=== PATIENT | female | born 2000 | race American Indian/Alaskan Native ===

== ENCOUNTER 2023-09-05 07:09 | Day surgery (SDC) | payer BC, OTHER ==
[~2023-09-05 07:09] MED LIST: Midazolam 1 MG/ML 2 ML SDV ONE; fentaNYL 100 MCG/2 ML SDV ONE
[2023-09-05] MEDS ORDERED: Midazolam 1 MG/ML 2 ML SDV IV ONE (07:10)
[2023-09-05] MEDS ORDERED: fentaNYL 100 MCG/2 ML SDV IV ONE (07:10)
[2023-09-05] MEDS: Dextrose 5%-0.45% NaCl 1,000 ML IV SCH (07:36)
[2023-09-05] MEDS: fentaNYL 100 MCG/2 ML SDV IV ONE ×2 (07:51→07:52)
[2023-09-05] MEDS: Midazolam 1 MG/ML 2 ML SDV IV ONE ×2 (07:52→07:53)
== END 2023-09-05 09:35 | disposition home or self-care (01) ==
LOC: DL.ENDO 07:09
PROVIDERS: ATTEND Internal Medicine Gastroenterology
DX: K29.50 Unspecified chronic gastritis without bleeding (principal); K31.819 Angiodysplasia of stomach and duodenum without bleeding; K31.A15 Gastric intestinal metaplasia without dysplasia, involving multiple sites; K59.00 Constipation, unspecified; D72.820 Lymphocytosis (symptomatic)
CPT/HCPCS: 43239; 81025; 87077; J2250; J3010; J7799

== ENCOUNTER 2023-09-12 07:38 | Day surgery (SDC) | payer BC, OTHER ==
[2023-09-12] MEDS ORDERED: fentaNYL 100 MCG/2 ML SDV IV ONE (07:39)
[2023-09-12] MEDS ORDERED: Midazolam 1 MG/ML 2 ML SDV IV ONE (07:39)
[2023-09-12] MEDS: Dextrose 5%-0.45% NaCl 1,000 ML IV SCH (07:59)
[2023-09-12] MEDS ORDERED: Midazolam 1 MG/ML 2 ML SDV ONE (08:06)
[2023-09-12] MEDS ORDERED: fentaNYL 100 MCG/2 ML SDV ONE (08:07)
[2023-09-12] MEDS: fentaNYL 100 MCG/2 ML SDV IV ONE ×5 (08:09→08:19)
[2023-09-12] MEDS: Midazolam 1 MG/ML 2 ML SDV IV ONE ×6 (08:10→08:16)
== END 2023-09-12 09:31 | disposition home or self-care (01) ==
LOC: DL.ENDO 07:38
PROVIDERS: ATTEND Internal Medicine Gastroenterology
DX: K62.5 Hemorrhage of anus and rectum (principal); R10.9 Unspecified abdominal pain
CPT/HCPCS: 45378; J2250; J3010; J7799